=== PATIENT | female | born 1965 | race Caucasian/White ===

== ENCOUNTER 2016-12-15 08:05 | Emergency (ER) | payer MEDICAID ==
[~2016-12-15] VITALS: Ht 152.4 cm; Wt 77.0 kg
[~2016-12-15 08:05] MED LIST: FERR-89 PO
[2016-12-15 08:27] LABS: GLUCOSE,POINT OF CARE 97 MG/DL (70-110)
[2016-12-15] MEDS ORDERED: HydrOXYzine PAMOATE 50 MG CAPSULE PO ONE (08:30)
[2016-12-15 08:35] LABS: BASOPHILS % (AUTO) 0.3 % (0.0-2.0); EOSINOPHILS % (AUTO) 2.5 % (1.0-6.0); HEMATOCRIT 42.4 % (36-46); LYMPHOCYTES # (AUTO) 1.7 K/uL (1.0-4.8); LYMPHOCYTES % (AUTO) 26.8 % (22.0-44.0); MEAN CORPUSCULAR HEMOGLOBIN 28.5 pg (26.0-34.0); MEAN CORPUSCULAR VOLUME 87 fL (80-100); MONOCYTES # (AUTO) 0.5 K/uL (0.1-1.0); MONOCYTES % (AUTO) 7.6 % (2.0-9.0); NEUTROPHILS % (AUTO) 62.8 % (40.0-70.0); PLATELET COUNT (AUTO) 195 K/uL (150-450); RED BLOOD CELL COUNT(AUTO) 4.91 MIL/uL (4.00-5.20); RED CELL DISTRIBUTION WIDTH 13.6 % (11.5-14.5); WHITE BLOOD COUNT (AUTO) 6.4 K/uL (4.5-11.0)
[2016-12-15 08:42] LABS: ANION GAP 10 mmol/L (8-16); CALCIUM, TOTAL 8.6 mg/dL (8.8-10.5); CARBON DIOXIDE 25 mmol/L (22-29); CHLORIDE 106 mmol/L (98-107); CREATININE 0.86 mg/dL (0.60-1.30); GLOMERULAR FILTR. RATE CALC > 60 mL/min (>60); POTASSIUM 3.7 mmol/L (3.5-5.1); SODIUM SERUM 141 mmol/L (136-145); UREA NITROGEN, BLOOD 10 mg/dL (7-18)
[2016-12-15 08:49] LABS: ALANINE AMINOTRANSFERASE 19 U/L (12-78); ALBUMIN 3.4 g/dL (3.4-5.0); ASPARTATE AMINOTRANSFERASE 15 U/L (15-37); BILIRUBIN,TOTAL 0.4 mg/dL (0.1-1.0); TOTAL PROTEIN, SERUM 7.5 g/dL (6.4-8.2)
[2016-12-15 09:24] VITALS: BP 124/60
[2016-12-15] MEDS ORDERED: IBUPROFEN 600 MG TABLET PO ONE (09:30)
== END 2016-12-15 10:10 | disposition home or self-care (01) ==
LOC: EMS 08:08
DX: F41.9 Anxiety disorder, unspecified (principal); R20.0 Anesthesia of skin; R91.8 Other nonspecific abnormal finding of lung field
CPT/HCPCS: 70450; 82962; 93005; 99285